=== PATIENT | male | born 1970 | race Caucasian/White ===

== ENCOUNTER 2019-05-31 11:56 | Day surgery (SDC) | payer BC, OTHER ==
[~2019-05-31] VITALS: Ht 185.4 cm; Wt 111.5 kg
[2019-05-31 12:26] VITALS: Ht 185.4 cm; Wt 111.5 kg
[2019-05-31] MEDS ORDERED: PROPOFOL 40 ML ONE (14:00)
[2019-05-31] MEDS ORDERED: LIDOCAINE 2% (SDV) 5 ML INJ ONE (14:00)
--- NOTE | 2019-05-31 14:00 | PREAC ---
Date/Time of Note Date/Time of Note DATE: 05/31/19 TIME: 13:59 Anesthesia Eval and Record Evaluation Time Pre-Procedure Interview DATE: 05/31/19 TIME: 13:59 Age 48 Sex male NPO: 8 hrs Preoperative diagnosis RECTAL BLEEDING Planned procedure COLONOSCOPY Past Medical History Past Medical History: Includes GI: Obesity Surgery & Anesthesia Issues No known issue Meds Anticoagulation: No Beta Baudilio within 24 hr: No Reason Beta Baudilio not given: Pt. not on B-Baudilio Reported Medications [None] No Conflict Check 05/31/19 Meds reviewed: Yes Allergies Coded Allergies: shellfish derived (Verified Allergy, Severe, 05/31/19) Allergies Reviewed: Yes Labs/Studies Labs Reviewed: Reviewed by anesthesiologist test: N/A Pre-procedure Exam Airway: Adequate mouth opening, Adequate thyromental dist Mallampati: Mallampati II Teeth: Normal Lung: Normal Heart: Normal ASA Physical Status ASA physical status: 2 Emergency: None Planned Anesthetic General/MAC: MAC Planned Pain Management Parenteral pain med Pre-operative Attestations Prior to commencing anesthesia and surgery, the patient was re-evaluated, there was verification of: *The patient's identity *The results of appropriate recent lab work and preoperative vital signs *The above evaluation not changing prior to induction *Anesthetic plan, risk benefits, alternative and complications discussed with patient/family; questions answered; patient/family understands, accepts and wishes to proceed. Matt Cortez M.D. May 31, 2019 13:59
[2019-05-31 14:06] VITALS: BP 122/74; PULSE 62; RESP 27
--- NOTE | 2019-05-31 14:28 | PAC ---
Date/Time of Note Date/Time of Note DATE: 05/31/19 TIME: 14:24 Post-Anesthesia Notes Post-Anesthesia Note Last documented vital signs HR 74 RR 14 BP 114/75 T 98.1 Activity: WNL Respiratory function: WNL Cardiovascular function: WNL Mental status: Baseline Pain reasonably controlled: Yes Hydration appropriate: Yes Nausea/Vomiting absent: Yes Matt Cortez M.D. May 31, 2019 14:28
[2019-05-31 14:50] VITALS: BP 119/83; PULSE 58; RESP 16
== END 2019-05-31 16:13 | disposition home or self-care (01) ==
LOC: GIL 11:56
PROVIDERS: ATTEND Internal Medicine Gastroenterology
DX: K92.1 Melena (principal); K64.8 Other hemorrhoids
CPT/HCPCS: 45378; Z7610